=== PATIENT | male | born 1975 | race Caucasian/White ===

== ENCOUNTER 2020-08-22 16:44 | Emergency (ER) | payer OTHER, SELFPAY ==
--- NOTE | ~2020-08-22 | XR_ITS ---
EXAMINATION: XR FINGER, LEFT CLINICAL INFORMATION: Trauma. Fracture versus dislocation left fourth finger. COMPARISON: None TECHNIQUE: Single AP view left hand and performed. FINDINGS: There is medial dislocation fourth finger middle phalanx. No visible fracture on this single view. The remainder the bony structures are unremarkable. XR/XR finger LT min 2V IMPRESSION: Medial dislocation fourth finger middle phalanx. No visible fracture on single AP view.
--- NOTE | ~2020-08-22 | XR_ITS ---
EXAMINATION: XR FINGER, LEFT CLINICAL INFORMATION: Post reduction of fourth middle phalanx dislocation. COMPARISON: Radiographs left hand 08/22/2020 TECHNIQUE: AP view left hand and lateral view left fourth finger is performed for 2 views. FINDINGS: There is been reduction of the fourth middle phalanx dislocation. PIP joint is in normal alignment. The lateral view shows 2 minute punctate ossific densities adjacent to palmar base middle phalanx which may represent tiny cortical avulsions. Otherwise, no fracture. XR/XR finger LT min 2V IMPRESSION: 1. Status post reduction fourth middle phalanx dislocation, now normal alignment. 2. Two minute punctate cortical avulsions palmar base middle phalanx. Otherwise, no fracture.
--- NOTE | 2020-08-22 16:57 | ED_ITS ---
HPI - Extremity Injury (Upper) General Chief Complaint: Extremity Injury, Upper Stated Complaint: broken finger Time Seen by Provider: 08/22/20 16:45 Source: patient Mode of arrival: ambulatory Limitations: no limitations History of Present Illness HPI narrative: States was during exercise is medicine ball against the wall and injured his left ring finger just prior to arrival with obvious deformity. No other injury. complaint: injury to: left Onset (ago): minute(s) Other Extremity Injury: left: fingers Handedness: left Place: other ([place]) Severity: mild (States essentially no pain when not moving.) Relieving factors: none Exacerbating factors: movement of extremity Context: direct blow (Against medicine ball) Associated symptoms: denies other symptoms Treatments prior to arrival: cold therapy Related Data Allergies Allergy/AdvReac Type Severity Reaction Status Date / Time Penicillins Allergy Hives Verified 08/22/20 17:09 Review of Systems Review of Systems: Constitutional: No Weight loss, No Fever, No Chills, No Night Sweats, No Fatigue, No Malaise ENT/Mouth: No Hearing loss, No Ear Pain, No Nasal Congestion, No Sinus Pain, No Hoarseness, No sore throat, No Rhinorrhea, No Swallowing Difficulty Eyes: No Eye Pain, No Swelling, No Redness, No Foreign Body, No Discharge, No Vision Changes Cardiovascular: Negative Respiratory: Negative Gastrointestinal: Negative Genitourinary: Negative Musculoskeletal: No joint pain, No Myalgias, No Joint Swelling Skin: No Skin Lesions, No rash Neuro: No Weakness, No Numbness, No Paresthesias, No Loss of Consciousness, No Dizziness, No Headache Psych: Negative Heme/Lymph: Negative Endocrine: Negative Yes all other systems are reviewed and are negative [facility] Social History Social History Smoking Status: Current every day smoker Use of substances other than those prescribed or required for medical reasons: No Substance Use Type: Marijuana Advance Directives: No Advance Directives Information Provided: No Physical Exam Vital Signs: Vital Signs: Last Vital Signs Temp 99.0 F 08/22/20 17:04 Pulse 88 08/22/20 17:04 Resp 16 08/22/20 17:04 BP 117/57 L 08/22/20 17:04 Pulse Ox 98 08/22/20 17:04 Body Mass Index 30.2 Reviewed Const: General: cooperative and healthy appearing; No acute distress or intoxicated appearing Nutritional Appearance: average body habitus Orientation/consciousness: patient oriented x3 HENMT: Head: Yes normal to inspection Ears: hearing grossly normal bilaterally Eyes: General: appearance normal, both eyes and all related structures Visual Mims: normal visual mims by confrontation Resp: Effort & Inspection: normal respiratory effort Auscultation: clear to auscultation bilaterally Cardio: Jugular venous distension: no JVD Rhythm: regular rhythm Heart sounds: S1 normal heart sound present and S2 normal heart sound present Skin: General skin exam: no rashes or lesions noted Neuro: General: patient oriented x3 Extrem: General: Yes normal to inspection Left upper extremity: hand (Left ring finger with obvious deformity c/w dislocation ) Procedures Orthopedic Joint Reduction Joint #1: Side: left Joint Reduction Location: finger (Left index finger) Shoulder Technique Used (if applicable): traction/counter-traction Technique used: direct manipulation Post-reduction neuro exam: intact Post-reduction vascular: intact Post Reduction X-Ray Results: reduced Splint Applied: Yes Patient Tolerated Procedure: well MDM - Extremity Injury (Upper) Medical Records Attestation: I reviewed the patient's medical records. Lab Data Attestation: I reviewed the patient's lab results. Imaging Data Finger x-ray: Radiologist's impression: [address] [id number] ReportSigned Patient: Neel SkinnerMR#: [id number]: [id number]:[id number]/Sex: 45 / MADM Date: 08/22/20Loc: [email or web address] Dr: Ordering Physician: Lewis Leach NP Date of Service: 08/22/20 Procedure(s): XR finger LT min 2V Accession Number(s): [id number] cc: Lewis Leach [employer]~ EXAMINATION: XR FINGER, LEFT CLINICAL INFORMATION: Post reduction of fourth middle phalanx dislocation. COMPARISON: Radiographs left hand 08/22/2020 TECHNIQUE: AP view left hand and lateral view left fourth finger is performed for 2 views. FINDINGS: There is been reduction of the fourth middle phalanx dislocation. PIP joint is in normal alignment. The lateral view shows 2 minute punctate ossific densities adjacent to palmar base middle phalanx which may represent tiny cortical avulsions. Otherwise, no fracture. XR/XR finger LT min 2V IMPRESSION: 1. Status post reduction fourth middle phalanx dislocation, now normal alignment. 2. Two minute punctate cortical avulsions palmar base middle phalanx. Otherwise, no fracture. 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: [place] Discharge Plan Discharge Clinical Impression: Dislocation closed, finger Qualifiers: Encounter type: initial encounter Qualified Code(s): S63.259A - Unspecified dislocation of unspecified finger, initial encounter Fracture of phalanx of index finger Qualifiers: Encounter type: initial encounter Fracture type: closed Phalanx: middle Fracture alignment: nondisplaced Laterality: left Qualified Code(s): S62.651A - Nondisplaced fracture of middle phalanx of left index finger, initial encounter for closed fracture Patient Disposition: Home, Self-Care Instructions: Closed Reduction (ED), Finger Fracture (ED) Additional Instructions: Today you were evaluated for your left ring finger dislocation this was reduced The x-ray was done and showed a successful reduction There may be a possibility of a very subtle fracture For this reason we have put her in a finger splint Please follow-up with orthopedics Return if any concerns or worsening symptoms Thank you Referrals: Luiza Hunt MD [Physician] - 3 days
[2020-08-22 17:04] VITALS: BP 117/57; PULSE 88; RESP 16; TEMP 37.2; O2SAT 98; BMI 30.2
== END 2020-08-22 18:01 | disposition home or self-care (01) ==
PROVIDERS: Emergency Provider Emergency Medicine; PCP Internal Medicine
DX: S62.651A Nondisplaced fracture of middle phalanx of left index finger, initial encounter for closed fracture (principal); M79.645 Pain in left finger(s); Y29.XXXA Contact with blunt object, undetermined intent, initial encounter; Y93.B9 Activity, other involving muscle strengthening exercises; Y92.9 Unspecified place or not applicable; Y99.9 Unspecified external cause status; F17.200 Nicotine dependence, unspecified, uncomplicated; Z71.6 Tobacco abuse counseling; F12.90 Cannabis use, unspecified, uncomplicated
CPT/HCPCS: 26725; 73140; 99284

== ENCOUNTER → 2020-08-27 13:41 | Outpatient (BNVA) | payer OTHER, SELFPAY | PROVIDERS: PCP Internal Medicine; Visit Provider Orthopaedic Surgery | DX: S63.275A Dislocation of unspecified interphalangeal joint of left ring finger, initial encounter (principal) | CPT/HCPCS: 99202 ==